=== PATIENT | male | born 1970 | race Caucasian/White ===

== ENCOUNTER → 2020-08-22 09:30 | Outpatient (BNVA) | payer OTHER, SELFPAY | PROVIDERS: Family Provider Family Medicine; PCP Family Medicine; Referring Provider Family Medicine; Visit Provider Podiatrist Foot & Ankle Surgery | DX: L60.3 Nail dystrophy (principal) | CPT/HCPCS: 87210 ==

== ENCOUNTER 2020-09-24 21:01 | Emergency (ER) | payer OTHER, SELFPAY ==
[2020-09-24 21:05] VITALS: BP 154/88; PULSE 82; RESP 26; TEMP 36.6; O2SAT 95; BMI 57.6
--- NOTE | 2020-09-24 21:09 | XR_ITS ---
WS: [id number] XR chest 1V portable [id number] REASON FOR EXAM: cp FINDINGS: The heart is at the upper limits of normal to mildly enlarged. Mediastinum appears widened, likely du e to excess mediastinal fat. Patient is large and the inspiratory effort is suboptimal. Possible retrocardiac infiltrative process . Bony thorax intact. XR/XR chest 1V portable [id number] IMPRESSION: Possible infiltrate in the left lower lung retrocardiac region, equivocal. As c linically warranted follow-up upright PA and lateral chest.
--- NOTE | 2020-09-24 21:10 | ECG_ITS ---
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 Measurements Intervals [place] Rate: 83 P: 32 [place]: 152 QRS: 51 QRSD: 86 T: 56 QT: 359 QTc: 423 Interpretive Statements SINUS RHYTHM No previous ECG available for comparison Electronically Signed On 09-25-2020 19:23:08 INVENTORY ASSISTANT by Jolanta Alicia M.D. [id number]
--- NOTE | 2020-09-24 21:12 | ED_ITS ---
HPI - General Adult General: Chief complaint: General Medical Stated complaint: LEFT RIB PAIN, COUGH Time Seen by Provider: 09/24/20 21:06 Source: patient and EMS Mode of arrival: EMS Limitations: no limitations History of Present Illness: HPI narrative: 50-year-old male states had a cough the last 2 days. He states that the cough has been nonproductive. He states he is also had chest pain that started today. States pain is extremely sharp and much worse with palpation and movement or his cough. He denies any shortness of breath. He said no fever. Patient denies any vomiting. Onset (ago): day(s) Associated symptoms: Reports chest pain; Deny headache(s), nausea, rash or vomiting Review of Systems Const: Denies: fever(s), chills, body aches or change in appetite Eyes: Denies: blurry vision or eye discomfort ENMT: Denies: throat pain or dental pain Card: Reports: chest pain Resp: Reports: non-productive cough GI: Denies: abdominal pain, nausea, vomiting or diarrhea : Denies: dysuria Musc: Denies: neck pain or back pain Skin/Breast: Denies: rash Neuro: Denies: headache(s) Psych: Denies: depression Des/Lymph: Denies: easy bruising All/Imm: Denies: urticaria PFSH ED PFSH: Medical History Cerebral hemorrhage Elevated alkaline phosphatase level Hyperlipidemia Lumbar radiculopathy Myalgia Polyarthritis, inflammatory Skin ulcer, stage 4 Sleep apnea Varicella Social History Smoking and tobacco status: never smoked Alcohol intake: never Physical Exam Const: COMMON NORMALS: no acute distress, patient oriented x3 and healthy appearing HENMT: COMMON NORMALS: normocephalic and atraumatic HEAD & SCALP: normocephalic and atraumatic Eye: COMMON NORMALS: Equal, round and reactive pupils present and EOMs intact bilaterally PUPIL: Yes Equal, round and reactive pupils present Neck/C-Spine: COMMON NORMALS: full ROM and supple Chest: COMMONS NORMALS: normal inspection of the chest OTHER: Point tender to left chest reproduces her pain Resp: COMMON NORMALS: normal respiratory effort, No retractions, No use of accessory muscles and clear to auscultation bilaterally AUSCULTATION: clear to auscultation bilaterally Cardio: COMMON NORMALS: regular rate, regular rhythm and No murmurs present (Cardio) RATE: regular rate RHYTHM: regular rhythm GI: COMMON NORMALS: Normal to inspection, nondistended, normoactive bowel sounds present, Soft to palpation, non-tender and no masses PALPATION: Yes Soft to palpation Extremity: COMMON NORMALS: normal to inspection and full ROM Neuro: COMMON NORMALS: patient oriented x3, moves all extremities and no focal motor deficits Psych: COMMON NORMALS: mental status grossly normal, Normal thought process present and cooperative THOUGHT PROCESS: Normal thought process present Skin: COMMON NORMALS: no rashes or lesions noted and no wounds GENERAL SKIN EXAM: no rashes or lesions noted Course Vital Signs: Vital signs: Vital Signs Temperature 97.9 F 09/24/20 21:05 Pulse Rate 76 09/24/20 22:15 Respiratory Rate 17 09/24/20 22:15 Blood Pressure 155/89 09/24/20 22:15 Pulse Oximetry 93 09/24/20 22:15 MDM - General Adult MDM Narrative: Medical decision making narrative: Nancy presents here with chest pain that is likely muscular in nature from coughing. X-ray shows no pneumonia. His blood work here is all normal. We will test him for Covid started on pain meds along with antibiotics and albuterol. Patient is to return if he has any worsening symptoms. He is to follow-up PCP in 3 to 5 days. He understands and agrees to plan. Lab Data: Labs: Lab Results 09/24/20 09/24/20 09/24/20 Range/Units 21:15 21:15 21:15 WBC 9.8 (4.0-10.0) 10^3/ uL RBC 4.09 L (4.1-5.3) 10^6/u L Hgb 13.3 (11.7-16.6) g/dL Hct 41.2 L (42.0-52.0) % MCV 100.7 H (80-94) fL MCH 32.5 (28.0-34.0) pg MCHC 32.3 (30.0-36.0) g/dL RDW 12.1 (12.1-15.1) % Plt Count 258 (130-400) 10^3/c mm MPV 9.6 (7.4-10.4) fL Neut % (Auto) 66.0 % Lymph % (Auto) 25.3 % [place] % (Auto) 5.8 % Eos % (Auto) 2.1 % Baso % (Auto) 0.5 % Neut # (Auto) 6.49 (1.8-7.7) 10^3/u L Lymph # (Auto) 2.5 (0.8-4.8) 10^3/u L [place] # (Auto) 0.6 (0.2-0.9) 10^3/u L Eos # (Auto) 0.2 (0.0-0.8) 10^3/u L Baso # (Auto) 0.1 (0.0-0.1) 10^3/u L Nucleated RBC % (a uto) 0 % Nucleated RBCs # 0.0 /100WBC Sodium 135 L (136-145) mmol/L Potassium 4.2 (3.5-5.1) mmol/L Chloride 96 L (98-107) mmol/L Carbon Dioxide 29 (22-29) mmol/L Anion Gap 14.2 (5-19) BUN 15 (6-20) mg/dL Creatinine 0.7 (0.7-1.2) mg/dL GFR Calculation 118.4 (90-130) mL/min Glucose 121 H (65-115) mg/dL Calculated Osmolal ity 282 L (285-295) mOsm/k g Calcium 9.4 (8.5-10.5) mg/dL Total Bilirubin 0.2 (0.15-1.2) mg/dL AST 33 (0-40) U/L ALT 40 (0-41) U/L Alkaline Phosphata se 152 H (40-130) IU/L Troponin T Baselin e 6 (0-15) ng/L Total Protein 7.6 (6.6-8.7) g/dL Albumin 3.8 (3.5-5.2) g/dL Globulin 3.8 (1.3-4.6) g/dL Imaging Data^: CXR: Attestation: I personally reviewed and interpreted this imaging study as follows: My impression: no acute abnormality EKG Data^: EKG 1: Attestation: I personally reviewed and interpreted this EKG as follows: EKG interpretation date: 09/24/20 EKG interpretation time: 21:16 Interpretation: nsr hr [address] or t wave abnormalities qrs 86 qtc 399 Discharge Plan Discharge Patient Disposition: Home Clinical Impression: Chest wall pain Upper respiratory infection Qualifiers: URI type: unspecified URI Qualified Code(s): J06.9 - Acute upper respiratory infection, unspecified Condition: Stable Prescriptions: [place] 5-325 mg tablet 1 tab PO Q6H PRN (Reason: pain) Qty: 10 RF: 0 Keflex 500 mg capsule 500 mg PO Q6H 7 Days Qty: 28 RF: 0 albuterol sulfate 90 mcg/actuation HFA aerosol inhaler 2 inh INHALATION Q6H PRN (Reason: shortness of breath or wheezing) Qty: 8 RF: 0 Naprosyn 500 mg tablet 500 mg PO BID PRN (Reason: pain) Qty: 20 RF: 0 No Action modafinil [Provigil] 200 mg tablet 200 mg PO DAILY RF: 0 Complete Multivitamin Tablet 1 tab PO DAILY RF: 0 duloxetine 30 mg capsule, delayed rel sprinkle 30 mg PO DAILY RF: 0 chlorzoxazone 500 mg tablet 500 mg PO TID RF: 0 celecoxib 200 mg capsule 200 mg PO DAILY RF: 0 Saccharomyces boulardii [Daily Probiotic (S. boulardii)] 250 mg capsule 250 mg PO BID RF: 0 garlic Tablet 300 mg PO DAILY RF: 0 Discharge Orders: Discharge Order (Routine); Ordered 09/24/20 Ordered By: Anjana Early Referrals: Nate Hawley MD [Primary Care Provider] - 1-3 days Discharge Diet: Advance as tolerated Discharge Activity: Resume usual activity Patient Instructions: Chest Pain - Chest Wall, Upper Respiratory Infection (ED) Coding Level of Care Code ED Box Office Clerk for Chg Fwd Exam Comprehensive
[2020-09-24 21:25] VITALS: RESP 18
[2020-09-24] MEDS: morphine 4 mg/mL SDV 1 mL IVP (21:25)
[2020-09-24] MEDS: ondansetron 2 mg/ML SDV 2 mL 4 MG IVP (21:25)
[2020-09-24 21:26] LABS: Basophils # 0.1 10^3/uL (0.0-0.1); Basophils % 0.5 %; Eosinophils # 0.2 10^3/uL (0.0-0.8); Eosinophils % 2.1 %; Hematocrit 41.2 % (42.0-52.0); Hemoglobin 13.3 g/dL (11.7-16.6); Lymphocytes # 2.5 10^3/uL (0.8-4.8); Lymphocytes % 25.3 %; Mean Corpuscular HGB Conc 32.3 g/dL (30.0-36.0); Mean Corpuscular Hemoglobin 32.5 pg (28.0-34.0); Mean Corpuscular Volume 100.7 fL (80-94); Mean Platelet Volume 9.6 fL (7.4-10.4); Monocytes # 0.6 10^3/uL (0.2-0.9); Monocytes % 5.8 %; Neutrophils # 6.49 10^3/uL (1.8-7.7); Nucleated Red Blood Cells % 0 %; Platelet Count 258 10^3/cmm (130-400); Red Blood Count 4.09 10^6/uL (4.1-5.3); Red Cell Distribution Width 12.1 % (12.1-15.1); White Blood Count 9.8 10^3/uL (4.0-10.0)
[2020-09-24 21:45] LABS: Alanine Aminotransferase 40 U/L (0-41); Albumin Level 3.8 g/dL (3.5-5.2); Alkaline Phosphatase 152 IU/L (40-130); Anion Gap 14.2 (5-19); Aspartate Amino Transferase 33 U/L (0-40); Blood Urea Nitrogen 15 mg/dL (6-20); Calcium 9.4 mg/dL (8.5-10.5); Carbon Dioxide 29 mmol/L (22-29); Chloride 96 mmol/L (98-107); Globulin 3.8 g/dL (1.3-4.6); Glomerular Filtration Rate 118.4 mL/min (90-130); Glucose 121 mg/dL (65-115); Osmolality Calculated 282 mOsm/kg (285-295); Potassium 4.2 mmol/L (3.5-5.1); Sodium 135 mmol/L (136-145); Total Bilirubin 0.2 mg/dL (0.15-1.2); Total Protein 7.6 g/dL (6.6-8.7)
[2020-09-24 21:47] LABS: Troponin(5th) Baseline 6 ng/L (0-15)
[2020-09-24 22:15] VITALS: BP 155/89; PULSE 76; RESP 17; O2SAT 93
[2020-09-24] MEDS: HYDROcodone-acetaminophen 5-325 mg Tablet 1 TAB PO (22:41)
[2020-09-24] MEDS: dexamethasone 4 mg/mL INJ 8 MG IVP (22:41)
[2020-09-24 22:54] VITALS: BP 126/82; PULSE 79; RESP 22; O2SAT 94
[2020-09-27 03:52] LABS: Quest SARS-CoV-2 RNA NOT DETECTED (NOT DETECTED)
--- NOTE | 2020-09-27 09:56 | PC.NURSE ---
Pt contacted and informed of his COVID results.
== END 2020-09-24 22:55 | disposition home or self-care (01) ==
PROVIDERS: Emergency Provider Emergency Medicine; Family Provider Family Medicine; PCP Family Medicine
DX: R07.89 Other chest pain (principal); J06.9 Acute upper respiratory infection, unspecified; E78.5 Hyperlipidemia, unspecified
CPT/HCPCS: 12345; 71045; 80053; 84484; 85025; 87635; 93005; 96374; 96375; 99283; 99284; J1100; J2270; J2405

== ENCOUNTER 2020-10-01 08:34 | Emergency (ER) | payer OTHER, SELFPAY ==
--- NOTE | 2020-10-01 | US_ITS ---
REASON FOR EXAM: pleural effusion FINDINGS: Transthoracic ultrasound evaluation of the left chest demonstrates a moderate- sized left pleural effusion, correlating with the CT findings. Fluid collection was approximately 3 cm x 8.6 cm. IMPRESSION: Left pleural effusion as above. MTD US/US chest [id number]
[2020-10-01 08:35] VITALS: PULSE 96; RESP 24; TEMP 36.8; O2SAT 95; BMI 57.6
--- NOTE | 2020-10-01 08:47 | ED_ITS ---
HPI - General Adult General: Chief complaint: General Medical Stated complaint: left flank pain Time Seen by Provider: 10/01/20 08:46 History of Present Illness: HPI narrative: Patient complains about left upper quadrant pain just underneath his ribs left side that is been going on by for couple weeks been worse last few days was seen here in the ER did have slight relief. Patient is worse now feels like some is taken knife sticking up underneath his ribs on the left side. Says he has been having a cough and some congestion and sputum production has cleared up. Patient denies any shortness of breath chest pain nausea vomiting diarrhea or bladder problems. Patient denies fever chills. Patient said originally hurt with deep breath and cough but now just hurts all the time. MD complaint: Left upper quadrant pain Onset (ago): week(s) Location: abdomen Radiation: back Severity: severe and similar to prior episodes Severity scale (1-10): 7 Quality: stabbing Pain Consistency: constant Relieving factors: none Exacerbating factors: none Associated symptoms: Reports chest pain (Left upper quadrant) and cough; Deny dyspnea, headache(s), nausea, rash or vomiting Treatments prior to arrival: none Review of Systems Const: Denies: fever(s), chills or body aches Eyes: Denies: change in vision or blurry vision ENMT: Denies: throat pain or nasal congestion Card: Reports: chest pain (Left upper quadrant); Denies: dyspnea on exertion Resp: Reports: productive cough; Denies: dyspnea or non-productive cough GI: Reports: abdominal pain; Denies: nausea or vomiting : Denies: difficulty urinating Musc: Denies: extremity pain Skin/Breast: Denies: rash Neuro: Denies: headache(s) Psych: Denies: anxiety or depression Des/Lymph: Denies: easy bruising PFSH ED PFSH: Medical History (Updated 09/24/20 @ 22:28 by Anjana Early MD) Cerebral hemorrhage Elevated alkaline phosphatase level Hyperlipidemia Lumbar radiculopathy Myalgia Polyarthritis, inflammatory Skin ulcer, stage 4 Sleep apnea Varicella Social History Smoking and tobacco status: never smoked Alcohol intake: never Physical Exam Const: COMMON NORMALS: no acute distress, average body habitus and patient oriented x3 HENMT: COMMON NORMALS: normocephalic HEAD & SCALP: normal to inspection and normocephalic FACE & SINUS: normal facial exam Eye: COMMON NORMALS: conjunctivae normal GENERAL EYE: appearance normal, both eyes and all related structures CONJUNCTIVA: Yes conjunctivae normal Neck/C-Spine: COMMON NORMALS: no JVD Chest: COMMONS NORMALS: normal inspection of the chest Resp: COMMON NORMALS: normal respiratory effort and clear to auscultation bilaterally AUSCULTATION: clear to auscultation bilaterally Cardio: COMMON NORMALS: no JVD, regular rate and regular rhythm RATE: regular rate RHYTHM: regular rhythm GI: INSPECTION: No normal to inspection (Very obese) AUSCULTATION: Yes normoactive bowel sounds PALPATION: Yes Tenderness to palpation present (GI) Details: LUQ RECTAL EXAM: Yes deferred Extremity: COMMON NORMALS: normal to inspection and full ROM Neuro: COMMON NORMALS: patient oriented x3 Skin: OTHER: Some old bruising noted left lower quadrant Course Vital Signs: Vital signs: Vital Signs Temperature 98.2 F 10/01/20 08:35 Pulse Rate 74 10/01/20 10:15 Respiratory Rate 18 10/01/20 12:51 Blood Pressure 171/88 10/01/20 10:15 Pulse Oximetry 94 10/01/20 12:51 MDM - General Adult MDM Narrative: Medical decision making narrative: Dr. Aly asked me to evaluate this patient and begin work-up. Discussed case with Dr. Caicedo. Curb 65 score is 0. Radiologist, looked at the patient said did not feel like he could do the procedure without possibly caused some damage Dr. Dr. Caicedo any said have patient referred to skelp processor for follow-up. Lab Data: Labs: Lab Results 10/01/20 10/01/20 10/01/20 Range/Units 08:49 08:49 08:49 WBC 8.8 (4.0-10.0) 10^3/ uL RBC 3.59 L (4.1-5.3) 10^6/u L Hgb 11.7 (11.7-16.6) g/dL Hct 36.7 L (42.0-52.0) % MCV 102.2 H (80-94) fL MCH 32.6 (28.0-34.0) pg MCHC 31.9 (30.0-36.0) g/dL RDW 12.6 (12.1-15.1) % Plt Count 276 (130-400) 10^3/c mm MPV 9.8 (7.4-10.4) fL Neut % (Auto) 57.3 % Lymph % (Auto) 28.5 % [place] % (Auto) 7.4 % Eos % (Auto) 4.7 % Baso % (Auto) 0.8 % Neut # (Auto) 5.02 (1.8-7.7) 10^3/u L Lymph # (Auto) 2.5 (0.8-4.8) 10^3/u L [place] # (Auto) 0.7 (0.2-0.9) 10^3/u L Eos # (Auto) 0.4 (0.0-0.8) 10^3/u L Baso # (Auto) 0.1 (0.0-0.1) 10^3/u L Nucleated RBC % (a uto) 0 % Nucleated RBCs # 0.0 /100WBC ESR (0-10) mm/hr PT (12.1-14.9) SECO NDS INR (0.8-1.2) D-Dimer (0-0.59) ug/mIFE U Sodium 136 (136-145) mmol/L Potassium 4.7 (3.5-5.1) mmol/L Chloride 98 (98-107) mmol/L Carbon Dioxide 29 (22-29) mmol/L Anion Gap 13.7 (5-19) BUN 18 (6-20) mg/dL Creatinine 0.7 (0.7-1.2) mg/dL GFR Calculation 118.4 (90-130) mL/min Glucose 136 H (65-115) mg/dL Calculated Osmolal ity 286 (285-295) mOsm/k g Calcium 8.7 (8.5-10.5) mg/dL Total Bilirubin 0.2 (0.15-1.2) mg/dL AST 30 (0-40) U/L ALT 46 H (0-41) U/L Alkaline Phosphata se 132 H (40-130) IU/L Troponin T Gen 5 n g/L 7 (0-15) ng/L C-Reactive Protein 26.3 H (0.0-4.9) mg/L NT-Pro-B Natriuret Pep 8 (0-125) pg/mL Total Protein 6.8 (6.6-8.7) g/dL Albumin 3.5 (3.5-5.2) g/dL Globulin 3.3 (1.3-4.6) g/dL Lipase 12 L (13-60) U/L Urine Color (Yellow) Urine Appearance (CLEAR) Urine pH (5-7) Ur Specific Gravit y (1.005-1.030) Urine Protein (Negative) Urine Glucose (UA) (Normal) Urine Ketones (Negative) Urine Blood (Negative) Urine Nitrate (Negative) Urine Bilirubin (Negative) Urine Urobilinogen (Negative) mg/dL Ur Leukocyte [place] ase (Negative) SARS-CoV-2 Ag (Rap id) (Negative) 10/01/20 10/01/20 10/01/20 Range/Units 08:49 08:49 08:49 WBC (4.0-10.0) 10^3/ uL RBC (4.1-5.3) 10^6/u L Hgb (11.7-16.6) g/dL Hct (42.0-52.0) % MCV (80-94) fL MCH (28.0-34.0) pg MCHC (30.0-36.0) g/dL RDW (12.1-15.1) % Plt Count (130-400) 10^3/c mm MPV (7.4-10.4) fL Neut % (Auto) % Lymph % (Auto) % [place] % (Auto) % Eos % (Auto) % Baso % (Auto) % Neut # (Auto) (1.8-7.7) 10^3/u L Lymph # (Auto) (0.8-4.8) 10^3/u L [place] # (Auto) (0.2-0.9) 10^3/u L Eos # (Auto) (0.0-0.8) 10^3/u L Baso # (Auto) (0.0-0.1) 10^3/u L Nucleated RBC % (a uto) % Nucleated RBCs # /100WBC ESR 104 H (0-10) mm/hr PT 13.40 (12.1-14.9) SECO NDS INR 0.99 (0.8-1.2) D-Dimer 2.22 H (0-0.59) ug/mIFE U Sodium (136-145) mmol/L Potassium (3.5-5.1) mmol/L Chloride (98-107) mmol/L Carbon Dioxide (22-29) mmol/L Anion Gap (5-19) BUN (6-20) mg/dL Creatinine (0.7-1.2) mg/dL GFR Calculation (90-130) mL/min Glucose (65-115) mg/dL Calculated Osmolal ity (285-295) mOsm/k g Calcium (8.5-10.5) mg/dL Total Bilirubin (0.15-1.2) mg/dL AST (0-40) U/L ALT (0-41) U/L Alkaline Phosphata se (40-130) IU/L Troponin T Gen 5 n g/L (0-15) ng/L C-Reactive Protein (0.0-4.9) mg/L NT-Pro-B Natriuret Pep (0-125) pg/mL Total Protein (6.6-8.7) g/dL Albumin (3.5-5.2) g/dL Globulin (1.3-4.6) g/dL Lipase (13-60) U/L Urine Color (Yellow) Urine Appearance (CLEAR) Urine pH (5-7) Ur Specific Gravit y (1.005-1.030) Urine Protein (Negative) Urine Glucose (UA) (Normal) Urine Ketones (Negative) Urine Blood (Negative) Urine Nitrate (Negative) Urine Bilirubin (Negative) Urine Urobilinogen (Negative) mg/dL Ur Leukocyte [place] ase (Negative) SARS-CoV-2 Ag (Rap id) (Negative) 10/01/20 10/01/20 Range/Units 09:10 11:22 WBC (4.0-10.0) 10^3/ uL RBC (4.1-5.3) 10^6/u L Hgb (11.7-16.6) g/dL Hct (42.0-52.0) % MCV (80-94) fL MCH (28.0-34.0) pg MCHC (30.0-36.0) g/dL RDW (12.1-15.1) % Plt Count (130-400) 10^3/c mm MPV (7.4-10.4) fL Neut % (Auto) % Lymph % (Auto) % [place] % (Auto) % Eos % (Auto) % Baso % (Auto) % Neut # (Auto) (1.8-7.7) 10^3/u L Lymph # (Auto) (0.8-4.8) 10^3/u L [place] # (Auto) (0.2-0.9) 10^3/u L Eos # (Auto) (0.0-0.8) 10^3/u L Baso # (Auto) (0.0-0.1) 10^3/u L Nucleated RBC % (a uto) % Nucleated RBCs # /100WBC ESR (0-10) mm/hr PT (12.1-14.9) SECO NDS INR (0.8-1.2) D-Dimer (0-0.59) ug/mIFE U Sodium (136-145) mmol/L Potassium (3.5-5.1) mmol/L Chloride (98-107) mmol/L Carbon Dioxide (22-29) mmol/L Anion Gap (5-19) BUN (6-20) mg/dL Creatinine (0.7-1.2) mg/dL GFR Calculation (90-130) mL/min Glucose (65-115) mg/dL Calculated Osmolal ity (285-295) mOsm/k g Calcium (8.5-10.5) mg/dL Total Bilirubin (0.15-1.2) mg/dL AST (0-40) U/L ALT (0-41) U/L Alkaline Phosphata se (40-130) IU/L Troponin T Gen 5 n g/L (0-15) ng/L C-Reactive Protein (0.0-4.9) mg/L NT-Pro-B Natriuret Pep (0-125) pg/mL Total Protein (6.6-8.7) g/dL Albumin (3.5-5.2) g/dL Globulin (1.3-4.6) g/dL Lipase (13-60) U/L Urine Color Yellow (Yellow) Urine Appearance Clear (CLEAR) Urine pH 5 (5-7) Ur Specific Gravit y 1.025 (1.005-1.030) Urine Protein Neg (Negative) Urine Glucose (UA) Norm (Normal) Urine Ketones Negative (Negative) Urine Blood Neg (Negative) Urine Nitrate Negative (Negative) Urine Bilirubin Neg (Negative) Urine Urobilinogen Norm (Negative) mg/dL Ur Leukocyte [place] ase Negative (Negative) SARS-CoV-2 Ag (Rap id) Negative (Negative) Discharge Plan Discharge Prescriptions: No Action modafinil [Provigil] 200 mg tablet 200 mg PO BID RF: 0 Complete Multivitamin Tablet 1 tab PO DAILY RF: 0 duloxetine 30 mg capsule, delayed rel sprinkle 60 mg PO DAILY RF: 0 chlorzoxazone 500 mg tablet 500 mg PO TID RF: 0 celecoxib 200 mg capsule 200 mg PO BID RF: 0 garlic Tablet 2 tab PO DAILY RF: 0 Keflex 500 mg Capsule 500 mg PO Q6H RF: 0 Excedrin Migraine 250-250-65 mg Tablet 1 tab PO PRN RF: 0 Probiotic 1 cap PO DAILY RF: 0 hydrocodone-acetaminophen [[place]] 5-325 mg tablet 1 tab PO Q6H PRN (Reason: pain) Qty: 10 RF: 0 albuterol sulfate 90 mcg/actuation HFA aerosol inhaler 2 inh INHALATION Q6H PRN (Reason: shortness of breath or wheezing) Qty: 8 RF: 0 naproxen [Naprosyn] 500 mg tablet 500 mg PO BID PRN (Reason: pain) Qty: 20 RF: 0 Coding Level of Care Code ED Casting House Laborer for Chg Fwd Exam Comprehensive
--- NOTE | 2020-10-01 08:49 | ECG_ITS ---
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 Measurements Intervals [place] Rate: 86 P: 46 ND: 148 QRS: 56 QRSD: 88 T: 60 QT: 348 QTc: 418 Interpretive Statements SINUS RHYTHM LOW QRS VOLTAGE IN PRECORDIAL LEADS [QRS DEFLECTION < 1.0 mV IN CHEST LEADS] Compared to ECG 09/24/2020 21:16:13 Low QRS voltage now present Electronically Signed On 10-01-2020 19:17:48 VENEER STACKER by Mayra Lancaster M.D. [id number] f
--- NOTE | 2020-10-01 08:52 | XR_ITS ---
WS: [id number] XR chest 2V* [id number] REASON FOR EXAM: possible LLL infiltrate FINDINGS: Right lung is unchanged compared to previous examination of 09/24/2020. There is infiltrate and consolidation in the left lower lung which appears more prominent than on the previous examination. No new findings noted. XR/XR chest 2V* [id number] IMPRESSION: Left lower lobe infiltrate compatible with subacute pneumonitis. More prominent than on the previous examination.
[2020-10-01] MEDS: ketorolac 30 mg/mL INJ IVP (08:53)
[2020-10-01 09:21] LABS: Basophils # 0.1 10^3/uL (0.0-0.1); Basophils % 0.8 %; Eosinophils # 0.4 10^3/uL (0.0-0.8); Eosinophils % 4.7 %; Hematocrit 36.7 % (42.0-52.0); Hemoglobin 11.7 g/dL (11.7-16.6); Lymphocytes # 2.5 10^3/uL (0.8-4.8); Lymphocytes % 28.5 %; Mean Corpuscular HGB Conc 31.9 g/dL (30.0-36.0); Mean Corpuscular Hemoglobin 32.6 pg (28.0-34.0); Mean Corpuscular Volume 102.2 fL (80-94); Mean Platelet Volume 9.8 fL (7.4-10.4); Monocytes # 0.7 10^3/uL (0.2-0.9); Monocytes % 7.4 %; Neutrophils # 5.02 10^3/uL (1.8-7.7); Neutrophils % 57.3 %; Nucleated Red Blood Cells % 0 %; Platelet Count 276 10^3/cmm (130-400); Red Blood Count 3.59 10^6/uL (4.1-5.3); Red Cell Distribution Width 12.6 % (12.1-15.1); White Blood Count 8.8 10^3/uL (4.0-10.0)
[2020-10-01 09:26] LABS: Add Urine Microscopic? NO
[2020-10-01 09:32] LABS: Troponin T (5th) Once 7 ng/L (0-15)
[2020-10-01 09:32] LABS: Bilirubin Urine Neg (Negative); Blood Urine Neg (Negative); Glucose Urine UA Norm (Normal); Ketones Urine Negative (Negative); Leukocyte Esterase Urine Negative (Negative); Nitrate Urine Negative (Negative); Protein Urine Neg (Negative); Specific Gravity, Urine 1.025 (1.005-1.030); Urine Appearance Clear (CLEAR); Urine Color Yellow (Yellow); Urobilinogen Urine Norm (Negative); pH Urine 5 (5-7)
[2020-10-01 09:40] LABS: Alanine Aminotransferase 46 U/L (0-41); Albumin Level 3.5 g/dL (3.5-5.2); Alkaline Phosphatase 132 IU/L (40-130); Anion Gap 13.7 (5-19); Aspartate Amino Transferase 30 U/L (0-40); Blood Urea Nitrogen 18 mg/dL (6-20); C Reactive Protein 26.3 mg/L (0.0-4.9); Calcium 8.7 mg/dL (8.5-10.5); Carbon Dioxide 29 mmol/L (22-29); Chloride 98 mmol/L (98-107); Globulin 3.3 g/dL (1.3-4.6); Glomerular Filtration Rate 118.4 mL/min (90-130); Glucose 136 mg/dL (65-115); Lipase 12 U/L (13-60); NT Pro B Type Natriuretic Pept 8 pg/mL (0-125); Osmolality Calculated 286 mOsm/kg (285-295); Potassium 4.7 mmol/L (3.5-5.1); Sodium 136 mmol/L (136-145); Total Bilirubin 0.2 mg/dL (0.15-1.2); Total Protein 6.8 g/dL (6.6-8.7)
[2020-10-01 10:04] LABS: D Dimer 2.22 ug/mIFEU (0-0.59)
--- NOTE | 2020-10-01 10:14 | CTR_ITS ---
PROCEDURE INFORMATION: Exam: CT Angiography Chest With Contrast Exam date and time: 10/01/2020 10:47 AM Age: 50 years old Clinical indication: Condition or disease; Other: Lll pneumonitis; Additional info: Lll pneumonitis, pain TECHNIQUE: Imaging protocol: Computed tomographic angiography of the chest with intravenous contrast. 3D rendering (Not supervised by radiologist): MIP and/or 3D reconstructed images were created by the technologist. Radiation optimization: All CT scans at this facility use at least one of these dose optimization techniques: automated exposure control; mA and/or kV adjustment per patient size (includes targeted exams where dose is matched to clinical indication); or iterative reconstruction. Contrast material: [id number]; Contrast volume: 190 ml; Contrast route: INTRAVENOUS (IV); COMPARISON: CR XR chest 2V* [id number] 10/01/2020 9:15 AM RADIATION DOSE METRICS: Total DLP (mGy-cm): 2149.42 FINDINGS: Pulmonary arteries: No pulmonary embolus in the opacified pulmonary arteries. Aorta: Normal caliber of the thoracic aorta. Lungs: Mild airspace disease, disproportionately localized in the left lower lobe. Pleural space: Moderate sized left pleural effusion. Heart: No cardiomegaly. Mediastinal space: Prominent mediastinal and epicardial fat. Lymph nodes: Multiple lymph nodes, including a 2.2 by 1.7 by 2.2 cm right paratracheal and 4.3 x 2.5 x 3.3 cm subcarinal lymph nodes. Liver: Fatty infiltration of the liver. Bones/joints: Degenerative change . CT/CT angio chest PE protcl [id number] IMPRESSION: 1. No pulmonary embolus in the opacified pulmonary arteries. 2. Moderate sized left pleural effusion. 3. Multiple lymph nodes, including a 2.2 by 1.7 by 2.2 cm right paratracheal and 4.3 x 2.5 x 3.3 cm subcarinal lymph nodes. 4. Additional findings as described above. Radiation Dose CTDIVOL = (mGy): DLP = 2149.42 (mGy-cm)
[2020-10-01 10:15] VITALS: BP 171/88; PULSE 74; RESP 18; O2SAT 97
[2020-10-01] MEDS: iohexol 350 mg/mL 100 mL Btl IV ×2 (11:11→11:12)
[2020-10-01 11:59] LABS: Erythrocyte Sedimentation Rate 104 mm/hr (0-10)
[2020-10-01 12:00] LABS: SARS Covid-2 Antigen Negative (Negative)
--- NOTE | 2020-10-01 12:02 | US_ITS ---
WS: [id number] US thoracentesis [id number] REASON FOR EXAM: pleural effusion FINDINGS: Transthoracic ultrasound evaluation of the left chest demonstrates a moderate-sized left pleural effu yanet, correlating with the CT findings. Fluid collection was approximately 3 cm x 8.6 cm.
[2020-10-01 12:38] LABS: INR 0.99 (0.8-1.2)
[2020-10-01 12:51] VITALS: RESP 18; O2SAT 94
[2020-10-01] MEDS: morphine 4 mg/mL SDV 1 mL IVP (12:51)
[2020-10-01] MEDS: ondansetron 2 mg/ML SDV 2 mL 4 MG IVP (12:51)
--- NOTE | 2020-10-02 12:59 | DCPLANNER ---
call manager had message to schedule a follow up appointment for patient with pulmonology. call manager called [facility], spoke with Claribel, a follow up appointment was scheduled for September at 9:[address] Nolasco. call manager called patient, spoke with patients , gave appointment information. Patients stated that patient will attend appointment.
--- NOTE | 2020-11-22 12:13 | DCPLANNER ---
Patient had a follow up appointment scheduled for 10.03.20 with [facility] - patient did attend appointment.
== END 2020-10-01 16:05 | disposition home or self-care (01) ==
PROVIDERS: Emergency Provider Nurse Practitioner Family; PCP Family Medicine
DX: R10.12 Left upper quadrant pain (principal); R05 Cough; Z79.891 Long term (current) use of opiate analgesic; E78.5 Hyperlipidemia, unspecified; Z86.73 Personal history of transient ischemic attack (TIA), and cerebral infarction without residual deficits; J90 Pleural effusion, not elsewhere classified
CPT/HCPCS: 12345; 32555; 71046; 71275; 76604; 80053; 81003; 83690; 83880; 84484; 85025; 85378; 85610; 85651; 86140; 87426; 93005; 96374; 96375; 99282; 99284; J1885; J2270; J2405; J2930; Q9967

== ENCOUNTER → 2020-11-07 14:26 | Outpatient (BNVA) | payer OTHER, SELFPAY | PROVIDERS: PCP Family Medicine; Visit Provider Internal Medicine Cardiovascular Disease | DX: I50.9 Heart failure, unspecified (principal) | CPT/HCPCS: 80053; 83735; 83880 ==

== ENCOUNTER → 2020-12-15 12:30 | Outpatient (BNVA) | payer OTHER, SELFPAY | PROVIDERS: PCP Family Medicine; Visit Provider Internal Medicine Pulmonary Disease | DX: Z20.822 Contact with and (suspected) exposure to COVID-19 (principal) | CPT/HCPCS: 87635 ==

== ENCOUNTER 2020-12-19 08:59 | Outpatient (CLI) | payer OTHER, SELFPAY ==
[2020-12-19] MEDS: perflutren protein-a microsphr 0.22 mg/mL SDV 3 mL IV (10:53)
--- NOTE | 2020-12-19 11:00 | USCV_ITS ---
Nancy Nathan Age: 50 Gender: M : 1970 Exam Date: 12/19/2020 10:14 Ordering Phys: Jolanta Alicia MD ([email or web address]) Technologist: Derrick Hanley Exam Location: [facility] [place] Indication: CHEST PAIN BP: 190 / 103 HR: 75 Rhythm: Sinus Technical Quality: Very technically difficult study MEASUREMENTS (Male / Female) Normal Values 2D ECHO LV Diastolic Diameter PLAX 5.5 cm 4.2 - 5.9 / 3.9 - 5.3 cm LV Systolic Diameter PLAX 4.0 cm IVS Diastolic Thickness 1.2 cm 0.6 - 1.0 / 0.6 - 0.9 cm IVS Systolic Thickness 1.8 cm LVPW Diastolic Thickness 1.5 cm 0.6 - 1.0 / 0.6 - 0.9 cm LVPW Systolic Thickness 1.9 cm LVOT Diameter 2.9 cm LV Ejection Fraction 2D Teich 52.4 % LA Diameter 4.4 cm M-MODE LV Diastolic Diameter MM 5.5 cm 4.2 - 5.9 / 3.9 - 5.3 cm LV Systolic Diameter MM 4.2 cm LV Ejection Fraction MM Teich 46.3 % IVS Diastolic Thickness MM 1.5 cm 0.6 - 1.0 / 0.6 - 0.9 cm IVS Systolic Thickness MM 1.9 cm LVPW Diastolic Thickness MM 1.5 cm 0.6 - 1.0 / 0.6 - 0.9 cm LVPW Systolic Thickness MM 2.2 cm RV Diastolic Diameter MM 2.1 cm Aortic Annulus Diameter 4.0 cm LA Ao Ratio MM 1.4 MV E Point Septal Separation 1.1 cm DOPPLER AV Peak Velocity 118.0 cm/s LVOT Peak Velocity 86.0 cm/s AV Area Cont Eq vti 4.5 cm squared AV Area Cont Eq pk 4.9 cm squared MV Area PHT 5.0 cm squared Mitral E to A Ratio 1.8 MV E' Velocity 88.0 cm/s Mitral E to LV E' Septal Ratio 5.9 TR Peak Velocity 143.7 cm/s TR Peak Gradient 8.3 mmHg TV Peak E Velocity 97.0 cm/s Right Atrial Pressure 3.0 mmHg Pulmonary Artery Systolic Pressu 11.3 mmHg PV Peak Velocity 120.0 cm/s FINDINGS Left Ventricle Probably normal left ventricular size and systolic function. No diagnostic regional wall motion abnormality. Right Ventricle Probably normal right ventricular size and systolic function. Right Atrium Right atrium not well visualized. Left Atrium Left atrium not well visualized. Mitral Valve Mitral valve not well visualized. Aortic Valve Aortic valve not well visualized. Tricuspid Valve Tricuspid valve not well visualized. Pulmonic Valve Pulmonic valve not well visualized. Pericardium No pericardial effusion. Aorta Aorta not well visualized. CONCLUSIONS 1. This is a technically very difficult study. Ultrasound enhancing agent (Optison) was used. 2. Probably normal left ventricular size and systolic function. No diagnostic regional wall motion abnormality. 3. Direct comparison to pevious study not possible. Jolanta Alicia MD (Electronically Signed) Final Date: 22 December 2020 17:21 S
== END 2020-12-19 09:00 | disposition home or self-care (01) ==
PROVIDERS: PCP Family Medicine; Visit Provider Internal Medicine Cardiovascular Disease
DX: I50.9 Heart failure, unspecified (principal)
CPT/HCPCS: C8929; Q9956

== ENCOUNTER 2020-12-19 09:05 | Outpatient (CLI) | payer OTHER, SELFPAY ==
--- NOTE | 2020-12-19 13:00 | CT_ITS ---
WS: [id number] CT CHEST TECHNIQUE: Noncontrast CT of the chest with coronal and sagittal reformatted images. CLINICAL INFORMATION: COPD COMPARISON: CTA chest October 01, 2020 DLP: 2616.[address] scans at [facility] use at least one of these dose optimization techniques: automat ed exposure control; mA and/or kV adjustment per patient size (includes targeted exams where dose is matched to clinical indication); or iterative reconstruction. FINDINGS: Mild chronic emphysematous changes. No acute pulmonary infiltrates. No suspicious pulmonary parenchym al opacities. Calcified granulomas. Normal caliber thoracic aorta. No mediastinal or hilar lymphadeno john. Previously described prominent peribronchial and subcarinal lymph nodes less prominent today l ikely reactive. No axillary lymphadenopathy. Mild fatty atrophy of the pancreas. Adrenal glands are normal. Mild thoracic kyphosis. Hypertrophic c hanges thoracic spine. CT/CT chest wo con [id number] IMPRESSION: 1. Mild chronic emphysematous changes. 2. No acute pulmonary infiltrates. 3. No suspicious pulmonary parenchymal opacities. 4. No pathologic mediastinal or hilar lymphadenopathy.
== END 2020-12-19 09:06 | disposition home or self-care (01) ==
PROVIDERS: PCP Family Medicine; Visit Provider Internal Medicine Pulmonary Disease
DX: J44.9 Chronic obstructive pulmonary disease, unspecified (principal)
CPT/HCPCS: 71250

== ENCOUNTER 2020-12-19 09:08 | Outpatient (CLI) | payer OTHER, SELFPAY ==
--- NOTE | 2020-12-19 10:26 | PFTS_ITS ---
Date of Study:12/19/20 Date of Dictation: MECHANICS: Forced vital capacity (FVC) is reduced. Forced expiratory volume in one second (FEV1) is reduced. FEV1/FVC is normal. FLOW VOLUME LOOP: Narrow. LUNG VOLUMES: Total lung capacity (TLC) is normal. Residual volume (RV) is elevated. DIFFUSING CAPACITY FOR CARBON MONOXIDE: Normal. INTERPRETATION: The pulmonary function test is consistent with nonspecific ventilatory limitation. The prebronchodilator spirometry is consistent with mild restriction however the patient's total lung capacity is normal. The patient likely has a combination of obstructive and restrictive ventilatory defect. Lung volumes are consistent with air trapping. Gas exchange (DLCO) is normal. MTDD
== END 2020-12-19 09:09 | disposition home or self-care (01) ==
PROVIDERS: PCP Family Medicine; Visit Provider Internal Medicine Pulmonary Disease
DX: R06.02 Shortness of breath (principal)
CPT/HCPCS: 94010; 94618; 94726; 94729

== ENCOUNTER 2021-01-02 14:04 | Outpatient (CLI) | payer OTHER, SELFPAY ==
[2021-01-02 15:12] LABS: Anion Gap 12.4 (5-19); Blood Urea Nitrogen 16 mg/dL (6-20); Calcium 9.3 mg/dL (8.5-10.5); Carbon Dioxide 31 mmol/L (22-29); Chloride 98 mmol/L (98-107); Glomerular Filtration Rate 141.5 mL/min (90-130); Glucose 107 mg/dL (65-115); Osmolality Calculated 286 mOsm/kg (285-295); Potassium 4.4 mmol/L (3.5-5.1); Sodium 137 mmol/L (136-145)
== END 2021-01-02 14:05 | disposition home or self-care (01) ==
LOC: LAB 14:08
PROVIDERS: PCP Family Medicine; Visit Provider Internal Medicine Pulmonary Disease
DX: E78.2 Mixed hyperlipidemia (principal)
CPT/HCPCS: 36415; 80048

== ENCOUNTER 2021-01-16 15:10 | Outpatient (CLI) | payer OTHER, SELFPAY ==
[2021-01-16 16:17] LABS: Anion Gap 13.5 (5-19); Blood Urea Nitrogen 14 mg/dL (6-20); Calcium 9.1 mg/dL (8.5-10.5); Carbon Dioxide 30 mmol/L (22-29); Chloride 97 mmol/L (98-107); Glomerular Filtration Rate 118.4 mL/min (90-130); Glucose 108 mg/dL (65-115); Magnesium 1.7 mg/dL (1.7-2.3); Osmolality Calculated 283 mOsm/kg (285-295); Potassium 4.5 mmol/L (3.5-5.1); Sodium 136 mmol/L (136-145)
[2021-01-17 14:03] LABS: NT Pro B Type Natriuretic Pept 50 pg/mL (0-125)
== END 2021-01-16 15:11 | disposition home or self-care (01) ==
PROVIDERS: Internal Medicine Cardiovascular Disease; PCP Family Medicine; Visit Provider Internal Medicine Pulmonary Disease
DX: I50.9 Heart failure, unspecified (principal)
CPT/HCPCS: 36415; 80048; 83735; 83880

== ENCOUNTER → 2021-01-23 09:14 | Outpatient (BNVA) | payer OTHER, SELFPAY | PROVIDERS: PCP Family Medicine; Visit Provider Internal Medicine Cardiovascular Disease | DX: I50.9 Heart failure, unspecified (principal) | CPT/HCPCS: 80048; 83735; 83880 ==

== ENCOUNTER → 2021-02-14 14:44 | Outpatient (BNVA) | payer OTHER, SELFPAY | PROVIDERS: PCP Family Medicine; Visit Provider Internal Medicine Cardiovascular Disease | DX: Z01.818 Encounter for other preprocedural examination (principal); Z20.822 Contact with and (suspected) exposure to COVID-19 | CPT/HCPCS: 87635 ==

== ENCOUNTER 2021-02-19 12:14 | Outpatient (CLI) | payer OTHER, SELFPAY ==
--- NOTE | 2021-02-19 12:45 | USCV_ITS ---
Nancy Nathan Age: 51 Gender: M : 1970 Exam Date: 02/19/2021 12:33 Ordering Phys: Jolanta Alicia MD ([email or web address]) Technologist: Kimberly Joy [place] [facility]: HISTORY: Swelling in Legs PROCEDURES: The venous duplex Doppler examination of both lower extremities was performed in the standard fashion. The following venous structures were evaluated: common femoral vein,, the greater saphenous vein, superficial femoral vein, and the popliteal vein. In addition, the posterior tibial veins were evaluated and SSV. Serial compression, augmentation maneuvers, and spectral Doppler flow evaluation were performed. Bilateral duplex Venous Insufficiency study of the Deep and Superficial systems was carried out according to normal protocol with the patient in supine positon for deep system and dependent position for the superficial system. FINDINGS: No Insufficiency seen in superficial system. The Rt Pop vein had reflux. The veins were found to be easily compressible with spontaneous blood flow. Non pulsatile flow pattern. CONCLUSIONS No evidence of DVT in the above-mentioned identifiable veins. Significant deep venous reflux of greater than 1000 ms was noted in the right popliteal vein. No significant reflux in the superficial veins The superficial veins were found to be of medium to large caliber and greater than 1 cm deep from the surface Dr Mayra Lancaster MD [facility] (Electronically Signed) Final Date: 19 February 2021 18:51 S
== END 2021-02-19 12:15 | disposition home or self-care (01) ==
LOC: US 12:14
PROVIDERS: PCP Family Medicine; Visit Provider Internal Medicine Cardiovascular Disease
DX: M79.89 Other specified soft tissue disorders (principal); I82.431 Acute embolism and thrombosis of right popliteal vein
CPT/HCPCS: 93970

== ENCOUNTER 2021-02-21 14:11 | Observation (INO) | payer OTHER, SELFPAY ==
[2021-02-14 15:36] LABS: Basophils # 0.1 10^3/uL (0.0-0.1); Basophils % 0.8 %; Eosinophils # 0.3 10^3/uL (0.0-0.8); Eosinophils % 3.6 %; Hematocrit 37.4 % (42.0-52.0); Lymphocytes # 2.1 10^3/uL (0.8-4.8); Lymphocytes % 23.1 %; Mean Corpuscular HGB Conc 32.1 g/dL (30.0-36.0); Mean Corpuscular Volume 99.7 fL (80-94); Mean Platelet Volume 9.5 fL (7.4-10.4); Monocytes # 0.6 10^3/uL (0.2-0.9); Monocytes % 6.3 %; Neutrophils # 6.05 10^3/uL (1.8-7.7); Neutrophils % 65.5 %; Nucleated Red Blood Cells % 0 %; Platelet Count 259 10^3/cmm (130-400); Red Blood Count 3.75 10^6/uL (4.1-5.3); Red Cell Distribution Width 13.4 % (12.1-15.1); White Blood Count 9.2 10^3/uL (4.0-10.0)
[2021-02-14 15:42] LABS: INR 1.01 (0.83-1.21); Prothrombin Time (Patient) 13.6 Seconds (12.0-15.1)
[2021-02-14 16:01] LABS: Anion Gap 13.2 (5-19); Blood Urea Nitrogen 13 mg/dL (6-20); Carbon Dioxide 30 mmol/L (22-29); Chloride 97 mmol/L (98-107); Glucose 119 mg/dL (65-115); Magnesium 1.9 mg/dL (1.7-2.3); NT Pro B Type Natriuretic Pept 118 pg/mL (0-125); Osmolality Calculated 283 mOsm/kg (285-295); Potassium 4.2 mmol/L (3.5-5.1); Sodium 136 mmol/L (136-145)
[2021-02-21] VITALS (7 sets, daily range): BP systolic 113–178; BP diastolic 78–97; PULSE 65–78; RESP 17–23; TEMP 36.6–37.1; O2SAT 87–97
--- NOTE | 2021-02-21 13:55 | XACV_ITS ---
Exam Room: [facility] Ht: 175 cm Wt: 191 kg BSA: 3.17 m2 Gender: Male : 1970 Exam Priority: Routine Procedure(s): Procedure Description: Diagnostic procedure Procedure Description: Left Heart Catheterization Procedure Description: Right Heart Catheterization Procedure Description: O2 saturation Jolanta Alicia MD; Diagnostic Cath Status: Elective Diagnostic Findings * No significant disease noted in the Left Main, LAD, Circumflex, or RCA coronary arteries. * Coronary angiography shows right dominance. Conclusions 1. Right heart cath 1-Right atrium 23 mmHg2-Right ventricle 62/16 mmHg3-PA mean 40 mmHg4-Pulmonary capillary wedge pressure 5-Cardiac index 2.0. 2. No significant disease noted in the Left Main, LAD, Circumflex, or RCA coronary arteries. Recommendations * Continue current medical management and risk factor modification. Diagnostic RX Recommendation: medical therapy and/or counseling Pressures Phase:Rest AO : 140 / 82 ( 102 ) @ 12:15:00 PM LV : 22 / 22 / @ 12:15:00 PM 20 / 18 / @ 12:16:00 PM RV : 62 / 16 / @ 11:57:00 AM PA : 56 / 29 ( 40 ) @ 11:55:00 AM RA : a wave = v wave = mean = 23 @ 11:59:00 AM O2 Content Phase:Rest PA : O2 Content O2: 59.1 @ 12:15:00 PM Saturations Phase:Rest AO : 90 @ 12:15:00 PM RA : 57 @ 12:16:00 PM RV : 53 @ 11:55:00 AM PA : 59 @ 12:15:00 PM Cardiac Output Phase:Rest Jenna : 7 @ 12:15:00 PM Jenna Cardiac Index: 2 @ 12:15:00 PM Clinical Evaluation EBL: 5mL-10mL Procedural Details Procedure Consent Obtained. Admit Source: In Patient. Pre-Procedure Time Out. Identified patient by full name and date of as verbalized by the patient/guarantor. Does the consent match the physician's order: Yes. Accurate & Complete Informed Consent: Yes. Inpatient/Outpatient History & Physical on Chart: Yes. If H&P is completed, is and addenduem needed: N/A; If yes, is the addendum complete: N/A. Visualize and Verify Site with Patient/Guarantor: N/A. Relevant Radiology Images available: N/A. Pre-op teaching completed and patient verbalized understanding. The risks, benefits, and alternatives of sedation and/or procedure were discussed by physician. The patient agrees to continue. Procedure started. PERRLA. Strong, equal hand manager infrastructure bilaterally. Lungs clear x 5 lobes. IV Site on Arrival: 20 gauge in the right anticubital. IV Site on Arrival: 20 gauge in the left anticubital. Pre Procedural Pulses: bilateral radial was 3+. bilateral groins was prepped with chloroprep then draped in the usual sterile fashion. right radial was prepped with chloroprep then draped in the usual sterile fashion. Physician notified. Baseline sample Acquired. HR: 68 BPM. Physician arrived. Physician scrubbed in. Immediate Pre-Procedure Time Out. Correct Patient: Yes; Correct Procedure: Yes; Correct Site: Yes; Correct Patient Position: Yes; Correct Supplies: Yes; Dried Flammable Prep: Yes; Blood Products Available: N/A;. Lidocaine 1% infiltrated to the right brachial. Venous access obtained. Devens-Santiago MON catheter inserted. Devens-Santiago out. Lidocaine 1% infiltrated to the right radial. Arterial access obtained. A 5 turkish TIG catheter in over wire. wire out. Multiple views taken of left coronary artery. Catheter out. A 5 turkish JR4 catheter in over wire. wire out. Multiple views taken of right coronary artery. EDP Sample taken: LV 22/22,-5; HR: 73 BPM; SpO2: 91%. Catheter out. TR band placed. Hemostasis obtained. Sheath(s) removed and manual pressure held until hemostasis was achieved. Sterile 4x4 and Op-site applied to the puncture site. No oozing or hematoma noted. Post sheath removal instructions were given and the patient verbalized understanding. Post Procedure: Pulses reassessed and unchanged. PERRLA. Strong, equal hand manager infrastructure bilaterally. No VTE prophylaxis required. Medication's Wasted: Lidocaine 1% = 5 mL. Medication's Wasted: Heparin = 1000 units. Medication's Wasted: Nitro = 49.8 mg. Total IV fluids: 75 mL. Contrast type used: Omnipaque 300 mgI/mL, 500 mL bottle. Contrast Material : Omnipaque 76 ml. A Manual Compression was successful obtaining hemostatsis at the Right Brachial Vein insertion site. A TR Band was successful obtaining hemostatsis at the Right Radial artery insertion site. [facility] Clinical Fraility Score: 3: Managing Well. 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 Chest Pain Symptom Assessment: Atypical Angina. Cardiovascular Instability: Yes,. Post-op diagnosis: normal coronaries and moderate pulmonary hypertension. Complications: none. Estimated blood loss: 5mL-10mL. Procedure completed. Patient transferred by wheelchair to 1st floor. Vital chart was stopped. Access Site Site: Right Brachial Vein Sheath Size: 6 Fr Hemostasis Method: Manual Compression Hemostasis Success: Successful Site: Right Radial artery Sheath Size: 6 Fr Hemostasis Method: TR Band Hemostasis Success: Successful Procedure Medications Start: 4:30 PM Stop: 4:30 PM Medication: Versed Amount: 1 mg Route: I.V. Start: 4:30 PM Stop: 4:30 PM Medication: Fentanyl Amount: 25 mcg Route: I.V. Start: 4:40 PM Stop: 4:40 PM Medication: Versed Amount: 1 mg Route: I.V. Start: 4:40 PM Stop: 4:40 PM Medication: Fentanyl Amount: 25 mcg Route: I.V. Start: 4:41 PM Stop: 4:41 PM Medication: Fentanyl Amount: 25 mcg Route: I.V. Start: 4:45 PM Stop: 4:45 PM Medication: Versed Amount: 1 mg Route: I.V. Start: 4:48 PM Stop: 4:48 PM Medication: Versed Amount: 1 mg Route: I.V. Start: 4:54 PM Stop: 4:54 PM Medication: Versed Amount: 1 mg Route: I.V. Start: 4:55 PM Stop: 4:55 PM Medication: Fentanyl Amount: 50 mcg Route: I.V. Start: 5:06 PM Stop: 5:06 PM Medication: Nitrogylcerin Amount: 200 mcg Route: I.A. Start: 5:07 PM Stop: 5:07 PM Medication: Versed Amount: 1 mg Route: I.V. Start: 5:09 PM Stop: 5:09 PM Medication: Heparin Amount: 5000 units Route: I.V. I, the attending physician, have reviewed and verified all procedure medications. Yes, all medications given per verbal order History/Risk Factors Hypertension: Yes Dyslipidemia: Yes Obesity: Yes Tobacco Use: Never Report Signatures Finalized by Ricky Venegas MD on 03/04/2021 06:42 PM
--- NOTE | 2021-02-21 14:30 | PC.NURSE ---
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 Pt is alert, oriented. Has chronic bilateral knee and leg pain. IV's started on left and right AC space for pre-cardiac cath. Oriented pt to staff. VS taken.
[2021-02-21] MEDS: diphenhydrAMINE 50 mg Capsule PO (15:51)
[2021-02-21] MEDS: sodium chloride 0.9% 1,000 ML 50 ML IV (15:51)
--- NOTE | 2021-02-21 16:21 | W.PM.OPSFHP ---
Same Day Surgery H&P Indication for Procedure/HPI DATE OF PROCEDURE: February 21, 2021 CHIEF COMPLAINT/INDICATIONFOR SURGICAL PROCEDURE: Worsening of shortness of breath, CHF, unexplained shortness of breath PREOP DIAGNOSIS: Unexplained shortness of breath, CHF PLANNED PROCEDRUE: Operation Date: 02/21/21 12:00 Proposed Procedures p left and right heart cath 30537 I50.9 R06.09(Bilateral) - Ricky Venegas MD 51-year-old male possibly going for bariatric surgery with history of CHF unexplained shortness of breath has been referred to us for right and left heart cath. Patient has been explained all risk benefit and not ready for the procedure patient has been explained risk of major minor bleed, urgent emergent bypass, stroke, arrhythmia, . He would like to proceed with it. Medications/Allergies* Home Medications Medication Instructions Recorded Confirmed Type duloxetine 30 mg capsule,delayed 30 mg PO DAILY 08/22/20 02/21/21 History release sprinkle garlic 2 tab PO DAILY 08/22/20 01/26/21 History modafinil 200 mg tablet 200 mg PO BID 08/22/20 02/21/21 History multivitamin,sd-phcr-inmqwhkp 1 tab PO DAILY 08/22/20 01/26/21 History Probiotic 1 cap PO DAILY 10/01/20 01/26/21 History nmudiao-iugozcurlnldg-sjcvqibr 1 tab PO PRN 10/01/20 02/21/21 History [Excedrin Migraine] metolazone 2.5 mg PO EVERY OTHER DAY 02/21/21 02/21/21 History Allergies/Adverse Reactions Allergy/AdvReac Type Severity Reaction Status Date / Time No Known Allergies Allergy Verified 01/26/21 09:06 Current Medications: Generic Name Dose Route Start Last Admin Trade Name Freq PRN Reason Stop Dose Admin Sodium Chloride 1,000 mls @ 50 mls/hr 02/21/21 13:56 02/21/21 15:51 Sodium Chloride 0.9% IV 02/22/21 09:55 50 mls/hr .Q20H ONE Administration Pertinent History/Comorbid Conditions* Medical History (Updated 01/26/21 @ 09:28 by Jolanta Alicia MD) Cerebral hemorrhage Elevated alkaline phosphatase level Hyperlipidemia Lumbar radiculopathy Myalgia Polyarthritis, inflammatory Skin ulcer, stage 4 Sleep apnea Varicella Social History Smoking and tobacco status: former smoker Quit status (tobacco): has quit using tobacco Year quit tobacco: 2012 [id number] Second hand smoke exposure: Yes Smoking risk assessment/counseling performed?: No Alcohol intake: former Desire information about alcohol rehabilitation?: No Counseling given: No Lives independently: Yes Household members: spouse Marital status: service: No Current occupational status: disabled Pets and animals: No History of recent travel: No Current gender identity: Male Pertinent Exam Findings alert, oriented x 3, clear to auscultation bilaterally and regular rate & rhythm Morbidly obese Conscious Sedation Assessment PATIENT ASSESSED PRIOR TO SEDATION, WITH NO CHANGE NOTED: Yes AIRWAY EVAL/ANESTHESIA PLAN: ASA II and Risks, benefits & alternatives of sedation and/or procedure discussed Recommendations Surgery/Procedure today Coding Level of Care Code Acute 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
--- NOTE | 2021-02-21 17:30 | PC.NURSE ---
Back from rn cardiac cath Pt is alert, oriented. Denies any pain or discomfort at this time. Tr Band intact. no hematoma, bleeding or swelling. pressure dressing on right AC is intact. no hematoma or bleeding. activity restrictions discuss to pt such as no pushing or pulling using his right arm.
--- NOTE | 2021-02-21 20:11 | PC.NURSE ---
TR band removed at this time per protocol. No s/s of bleeding or hematoma formation observed. Instructed patient on site care and restrictions. Patient verbalized understanding. Patient has orders for discharge this evening.
--- NOTE | 2021-02-21 20:41 | PC.NURSE ---
Discharge instructions explained to patient with information of follow up appointments. Cardiac Rehab and Heart Cath education sent home with patient. Patient verbalizes understanding. Patient has no questions or complaints at this time. Taken in wheelchair by Hali MALIK to spouse waiting outside.
--- NOTE | 2021-02-24 16:35 | PC.RESP ---
Pulmonary Rehab information sent to patient.
== END 2021-02-21 20:41 | disposition home or self-care (01) ==
LOC: CCL 14:12 → CSU 14:12
PROVIDERS: Admitting Provider Internal Medicine Cardiovascular Disease; PCP Family Medicine; Referring Provider Internal Medicine Cardiovascular Disease; Visit Provider Internal Medicine Cardiovascular Disease
DX: R06.09 Other forms of dyspnea (principal); I50.9 Heart failure, unspecified; Z79.82 Long term (current) use of aspirin; E78.5 Hyperlipidemia, unspecified; M79.10 Myalgia, unspecified site; G47.30 Sleep apnea, unspecified; Z87.891 Personal history of nicotine dependence
CPT/HCPCS: 36415; 80048; 83735; 83880; 85025; 85610; 93460; C1751; C1769; C1887; C1894; G0378; J1644; J2250; J3010; J3490; J7030; Q0163; Q9967

== ENCOUNTER 2023-03-23 10:44 | Emergency (ER) | payer OTHER, SELFPAY ==
[2023-03-23 11:00] VITALS: BP 150/61; PULSE 95; RESP 24; TEMP 36.6; O2SAT 96; BMI 64.5
--- NOTE | 2023-03-23 11:09 | XRR_ITS ---
PROCEDURE INFORMATION: Exam: XR Chest Exam date and time: 03/23/2023 11:25 AM Age: 53 years old Clinical indication: Shortness of breath; Additional info: SOB TECHNIQUE: Imaging protocol: Radiologic exam of the chest. Views: 1 view. COMPARISON: [facility] [id number] 12/19/2020 10:27 AM FINDINGS: Lungs: Lungs are clear. Lung volumes are low. Pleural spaces: There is no pleural effusion or pneumothorax. Heart/Mediastinum: There is mild enlargement of the cardiac silhouette. Bones/joints: Bones are unremarkable. XR/XR chest 1V portable [id number] IMPRESSION: No acute findings.
[2023-03-23 12:54] LABS: Basophils # 0.1 10^3/uL (0.0-0.1); Basophils % 0.8 %; Eosinophils # 0.6 10^3/uL (0.0-0.8); Eosinophils % 5.6 %; Hematocrit 38.7 % (42.0-52.0); Hemoglobin 12.4 g/dL (11.7-16.6); Lymphocytes % 26.5 %; Mean Corpuscular Hemoglobin 32.1 pg (28.0-34.0); Mean Corpuscular Volume 100.3 fl (80-94); Mean Platelet Volume 9.2 fL (7.4-10.4); Monocytes # 0.7 10^3/uL (0.2-0.9); Monocytes % 6.2 %; Neutrophils # 6.89 10^3/uL (1.8-7.7); Neutrophils % 60.4 %; Nucleated Red Blood Cells % 0 %; Platelet Count 320 10^3/cmm (130-400); Red Blood Count 3.86 10^6/uL (4.1-5.3); Red Cell Distribution Width 14.1 % (12.1-15.1); White Blood Count 11.4 10^3/uL (4.0-10.0)
[2023-03-23 13:17] LABS: Alanine Aminotransferase 32 U/L (0-41); Albumin Level 3.6 g/dL (3.5-5.2); Alkaline Phosphatase 150 U/L (40-130); Anion Gap 16.5 (5-19); Aspartate Amino Transferase 35 U/L (0-40); Blood Urea Nitrogen 8 mg/dL (6-20); Calcium 9.9 mg/dL (8.5-10.5); Carbon Dioxide 30 mmol/L (22-29); Chloride 93 mmol/L (98-107); Globulin 4.6 g/dL (1.3-4.6); Glomerular Filtration Rate 117.1 mL/min (90-130); Glucose 141 mg/dL (65-115); NT Pro B Type Natriuretic Pept 41 pg/mL (0-125); Osmolality Calculated 281 mOsm/kg (285-295); Potassium 4.5 mmol/L (3.5-5.1); Sodium 135 mmol/L (136-145); Total Bilirubin 0.2 mg/dL (0.15-1.2); Total Protein 8.2 g/dL (6.6-8.7)
[2023-03-23 13:40] LABS: ABG PCO2 44.4 mmHg (35-45); ABG PH Result 7.42 (7.35-7.45); Alveolar-Arterial Oxygen Gradi 2.8 mmHg (5-10); Arterial Blood Gas Hematocrit 44.4 % (42-52); Base Excess ABG 3.7 mmol/L (-2.0-2.0); Blood Gas Allen Test Pos; Blood Gas Sample Type Arterial; HCO3 ABG 28.8 mmol/L (22-26); HGB O2 Sat 93.7 % (95-100); Ionized Calcium Level - ABG 1.2 mmol/L (1.1-1.4); Methemoglobin 0.7 % (0.4-1.5); Oxygen Saturation ABG 95.3; PO2 ABG 72.9 mmHg (80.0-100.0); Potassium Level - ABG 3.7 mmol/L (3.5-5.0); Total Hemoglobin 14.5 g/dL (14-18)
[2023-03-23 13:41] LABS: Blood Gas Operator Identificat MONRO; Blood Gas Sample Site Radial, left; Oxygen Device ROOM AIR
--- NOTE | 2023-03-23 14:40 | W.ED.SOB ---
HPI - SOB/Dyspnea General: Chief Complaint: Shortness of Breath/Dyspnea Stated Complaint: sob Time Seen by Provider: 03/23/23 13:04 History of Present Illness: HPI Narrative: Patient presents to the ER with complaints of shortness of breath and congestion times last 4 days. Patient states that exertion makes her short of breath worse. Patient does have a history of COPD and is morbidly obese. MD elicited complaint: shortness of breath Pertinent past history: COPD and diabetes Onset (ago): day(s) (4 days) Timing: constant Severity: mild Exacerbating factors: lying flat and exertion Relieving factors: oxygen Known history of: COPD Associated symptoms: Reports no associated symptoms; Deny abdominal pain, chest pain, fever(s), nausea, palpitations or vomiting Treatment prior to arrival: none Review of Systems General: Reports: 10 or more systems reviewed and unremarkable except in HPI and below Const: Denies: fever(s) or chills Eyes: Denies: change in vision or photophobia ENMT: Denies: throat pain or odynophagia Card: Denies: chest pain, palpitations or irregular heart rhythm Resp: Reports: dyspnea; Denies: productive cough or non-productive cough GI: Denies: abdominal pain, nausea, vomiting or diarrhea : Denies: flank pain, difficulty urinating or dysuria Musc: Denies: neck pain or back pain PFS ED PFSH: Medical History Cerebral hemorrhage Elevated alkaline phosphatase level Hyperlipidemia Lumbar radiculopathy Morbid obesity with BMI of 60.0-69.9, adult Myalgia Polyarthritis, inflammatory Skin ulcer, stage 4 Sleep apnea Varicella Social History Smoking and tobacco status: former smoker Quit status (tobacco): has quit using tobacco Year quit tobacco: 2012 [id number] Second hand smoke exposure: Yes Smoking risk assessment/counseling performed?: Yes Alcohol intake: former Desire information about alcohol rehabilitation?: No Counseling given: No Substance/Drug Use: never Lives independently: Yes Household members: spouse Marital status: service: No Current occupational status: disabled Pets and animals: No Do you think of yourself as: Straight/Heterosexual Current gender identity: Male Physical Exam Const: COMMON NORMALS: no acute distress, patient oriented x3, no limitations, healthy appearing, alert and well nourished NUTRITIONAL APPEARANCE: obese HENMT: COMMON NORMALS: normocephalic, atraumatic, hearing grossly normal bilaterally, external ears normal, Normal external nose present and moist oral mucous membranes HEAD & SCALP: normocephalic and atraumatic NOSE: Normal external nose present EXTERNAL EAR: Yes external ears normal Eye: COMMON NORMALS: Equal, round and reactive pupils present, EOMs intact bilaterally, conjunctivae normal and no scleral icterus CONJUNCTIVA: Yes conjunctivae normal PUPIL: Yes Equal, round and reactive pupils present Neck/C-Spine: COMMON NORMALS: full ROM, no lymphadenopathy, supple, no meningeal signs and no JVD Lymph: LYMPHATIC: no lymphadenopathy noted Chest: COMMONS NORMALS: normal inspection of the chest and normal palpation of entire chest wall Resp: COMMON NORMALS: normal respiratory effort, No retractions, No use of accessory muscles and clear to auscultation bilaterally AUSCULTATION: clear to auscultation bilaterally Cardio: COMMON NORMALS: no JVD, regular rate, regular rhythm, S1 normal heart sound present and S2 normal heart sound present RATE: regular rate RHYTHM: regular rhythm HEART SOUNDS: S1 normal heart sound present and S2 normal heart sound present GI: COMMON NORMALS: Normal to inspection, nondistended, normoactive bowel sounds present, Soft to palpation, non-tender, No hepatosplenomegaly present and no masses PALPATION: Yes Soft to palpation and Yes No hepatosplenomegaly present : COMMON NORMALS: Yes no CVA tenderness BLADDER/KIDNEY EXAM: Yes no CVA tenderness Back/Pelvis: COMMON NORMALS: no CVA tenderness Neuro: COMMON NORMALS: patient oriented x3 SENSORIUM/ORIENTATION: Yes alert MENINGEAL SIGNS: Yes no meningeal signs Course Vital Signs: Vital signs: Vital Signs Temperature 97.9 F 03/23/23 11:00 Pulse Rate 95 03/23/23 11:00 Respiratory Rate 24 H 03/23/23 11:00 Blood Pressure 150/61 03/23/23 11:00 Pulse Oximetry 96 03/23/23 11:00 Oxygen Delivery Me thod Room Air 03/23/23 11:00 MDM - SOB/Dyspnea Medical Decision Making Patient presents to the ER with shortness of breath and congestion x4 days. Patient has a history of COPD says he does have a oxygen concentrator and has CPAP at home but he does not use either one of them. Physical exam reveals a morbidly obese male patient. Lab work and imaging was obtained that showed a white count of 11.4. Otherwise was essentially benign with mildly hypoxic ABG. Patient was given 1 DuoNeb and 125 mg Solu-Medrol IV which helped the patient's breathing. Patient then complained about his legs and feet aching patient was given 30 mg Toradol IV which helped with this pain. Patient is thought to have acute exacerbation of his COPD and patient will be discharged on oral steroids and is to follow-up with his primary care practitioner within the next 1 week. Medical Records I reviewed the patient's medical records. Lab Data I reviewed the patient's lab results. 03/23/23 12:37 03/23/23 12:37 Labs/Radiology: Radiology Impressions Chest X-Ray 03/23/23 11:09 IMPRESSION: No acute findings. Laboratory Results WBC 11.4 10^3/uL (4.0-10.0) H 03/23/23 12:37 RBC 3.86 10^6/uL (4.1-5.3) L 03/23/23 12:37 Hgb 12.4 g/dL (11.7-16.6) 03/23/23 12:37 Hct 38.7 % (42.0-52.0) L 03/23/23 12:37 MCV 100.3 fl (80-94) H 03/23/23 12:37 MCH 32.1 pg (28.0-34.0) 03/23/23 12:37 MCHC 32.0 g/dL (30.0-36.0) 03/23/23 12:37 RDW 14.1 % (12.1-15.1) 03/23/23 12:37 Plt Count 320 10^3/cmm (130-400) 03/23/23 12:37 MPV 9.2 fL (7.4-10.4) 03/23/23 12:37 Neut % (Auto) 60.4 % 03/23/23 12:37 Lymph % (Auto) 26.5 % 03/23/23 12:37 Baxter % (Auto) 6.2 % 03/23/23 12:37 Eos % (Auto) 5.6 % 03/23/23 12:37 Baso % (Auto) 0.8 % 03/23/23 12:37 Neut # (Auto) 6.89 10^3/uL (1.8-7.7) 03/23/23 12:37 Lymph # (Auto) 3.0 10^3/uL (0.8-4.8) 03/23/23 12:37 Baxter # (Auto) 0.7 10^3/uL (0.2-0.9) 03/23/23 12:37 Eos # (Auto) 0.6 10^3/uL (0.0-0.8) 03/23/23 12:37 Baso # (Auto) 0.1 10^3/uL (0.0-0.1) 03/23/23 12:37 Nucleated RBC % (auto) 0 % 03/23/23 12:37 Nucleated RBCs # 0.0 /100WBC 03/23/23 12:37 Specimen Type Arterial 03/23/23 13:28 Sample Site Radial, left 03/23/23 13:28 ABG pH 7.42 (7.35-7.45) 03/23/23 13:28 ABG pCO2 44.4 mmHg (35-45) 03/23/23 13:28 ABG pO2 72.9 mmHg (80.0-100.0) L 03/23/23 13:28 ABG HCO3 28.8 mmol/L (22-26) H 03/23/23 13:28 ABG O2 Saturation 95.3 03/23/23 13:28 ABG Base Excess 3.7 mmol/L (-2.0-2.0) H 03/23/23 13:28 Osei Test Pos 03/23/23 13:28 A-a O2 Gradient 2.8 mmHg (5-10) L 03/23/23 13:28 Hematocrit 44.4 % (42-52) 03/23/23 13:28 Hgb O2 Saturation 93.7 % (95-100) L 03/23/23 13:28 Carboxyhemoglobin 1.0 %THgb (0.4-20.1) 03/23/23 13:28 Methemoglobin 0.7 % (0.4-1.5) 03/23/23 13:28 Total Hemoglobin 14.5 g/dL (14-18) 03/23/23 13:28 Sodium 136.0 mmol/L (131-143) 03/23/23 13:28 Potassium 3.7 mmol/L (3.5-5.0) 03/23/23 13:28 Glucose 137.0 mg/dL (70-115) H 03/23/23 13:28 Ionized Calcium 1.2 mmol/L (1.1-1.4) 03/23/23 13:28 O2 Delivery Device Room air 03/23/23 13:28 FiO2 21.0 % 03/23/23 13:28 Shop Repairer ID [place]ro 03/23/23 13:28 Sodium 135 mmol/L (136-145) L 03/23/23 12:37 Potassium 4.5 mmol/L (3.5-5.1) 03/23/23 12:37 Chloride 93 mmol/L (98-107) L 03/23/23 12:37 Carbon Dioxide 30 mmol/L (22-29) H 03/23/23 12:37 Anion Gap 16.5 (5-19) 03/23/23 12:37 BUN 8 mg/dL (6-20) 03/23/23 12:37 Creatinine 0.7 mg/dL (0.7-1.2) 03/23/23 12:37 GFR Calculation 117.1 mL/min (90-130) 03/23/23 12:37 Glucose 141 mg/dL (65-115) H 03/23/23 12:37 Calculated Osmolality 281 mOsm/kg (285-295) L 03/23/23 12:37 Calcium 9.9 mg/dL (8.5-10.5) 03/23/23 12:37 Total Bilirubin 0.2 mg/dL (0.15-1.2) 03/23/23 12:37 AST 35 U/L (0-40) 03/23/23 12:37 ALT 32 U/L (0-41) 03/23/23 12:37 Alkaline Phosphatase 150 U/L (40-130) H 03/23/23 12:37 NT-Pro-B Natriuret Pep 41 pg/mL (0-125) 03/23/23 12:37 Total Protein 8.2 g/dL (6.6-8.7) 03/23/23 12:37 Albumin 3.6 g/dL (3.5-5.2) 03/23/23 12:37 Globulin 4.6 g/dL (1.3-4.6) 03/23/23 12:37 Discharge Plan Discharge Patient Disposition: Home Clinical Impression: COPD (chronic obstructive pulmonary disease) Condition: Stable Prescriptions: New prednisone 50 mg tablet 50 mg PO DAILY Qty: 7 0RF No Action furosemide [Lasix] 80 mg tablet 80 mg PO DAILY modafinil [Provigil] 200 mg tablet 200 mg PO BID Complete Multivitamin Tablet 1 tab PO DAILY duloxetine 30 mg capsule, delayed rel sprinkle 30 mg PO BID garlic Tablet 2 tab PO DAILY potassium chloride 20 mEq tablet extended release 20 meq PO DAILY magnesium oxide 200 mg magnesium tablet 200 mg PO DAILY Qty: 30 3RF Excedrin Migraine 250-250-65 mg Tablet 1 tab PO DAILY PRN (Reason: Migraine Headache) Probiotic 15 billion cell Capsule 1 cap PO DAILY Qty: 0 losartan 50 mg tablet 50 mg PO BID lorazepam 0.5 mg tablet 0.5 mg PO PRN PRN (Reason: Anxiety) methotrexate sodium 2.5 mg tablet 10 mg PO Q7D Rx Instructions: ON MONDAYS desonide 0.05 % lotion 1 applic TOPICAL DAILY Ozempic 1 mg/dose (4 mg/3 mL) pen injector 1 mg SUBCUT Q7D Rx Instructions: ON MONDAYS Discharge Orders: Discharge ED (Routine); Ordered 03/23/23 Ordered By: Domingo Malik Referrals: Nate Hawley MD [Primary Care Provider] - Patient Instructions: COPD - Emphysema Coding Level of Care Code ED Pointer Helper for Dinora Leyva
[2023-03-23] MEDS: ketorolac 30 mg/mL INJ IVP (15:25)
[2023-03-23 15:30] VITALS: PULSE 57; RESP 188; O2SAT 97
[2023-03-23] MEDS: ipratropium-albuterol 3 mL Neb INHALATION (15:30)
== END 2023-03-23 15:56 | disposition home or self-care (01) ==
PROVIDERS: Family Medicine; Emergency Provider Emergency Medicine; PCP Family Medicine
DX: J44.9 Chronic obstructive pulmonary disease, unspecified (principal); E78.5 Hyperlipidemia, unspecified; Z87.891 Personal history of nicotine dependence
CPT/HCPCS: 36415; 36600; 71045; 80051; 80053; 82330; 82805; 83880; 85025; 94640; 96374; 96375; 99284; J1885; J2930